=== PATIENT | female | born 1985 | race Caucasian/White ===

== ENCOUNTER 2018-12-21 05:34 | Day surgery (SDC) | payer OTHER ==
[~2018-12-21] VITALS: Ht 170.2 cm; Wt 81.6 kg
[2018-12-21] MEDS ORDERED: LACTATED RINGERS 1,000 ML IV SCH (06:30)
[2018-12-21] MEDS ORDERED: LIDOCAINE HCL 1% 20ML VIAL (Pyxis) INJ ONE (06:37)
[2018-12-21] MEDS ORDERED: FENTANYL CITRATE/PF 50MCG/ML 2ML VIAL ONE (06:37)
[2018-12-21] MEDS ORDERED: MIDAZOLAM HCL 2 MG/2 ML VIAL ONE (06:37)
[2018-12-21] MEDS ORDERED: PROPOFOL 200MG/20ML VIAL IV ONE (06:37)
[2018-12-21] MEDS ORDERED: SUCCINYLCHOLINE CHLORIDE 200MG/10ML IV ONE (06:39)
[2018-12-21] MEDS ORDERED: ROCURONIUM BROMIDE 10MG/ML VIAL 5ML IV ONE (06:40)
[2018-12-21] MEDS ORDERED: SODIUM CHLORIDE 0.9% 10ML VIAL ONE ×2 (06:41→07:32)
[2018-12-21] MEDS ORDERED: EPHEDRINE SULFATE 50MG/ML VIAL ONE ×2 (06:41→06:42)
[2018-12-21 06:44] LABS: UCG SCREEN NEGATIVE
[2018-12-21] MEDS ORDERED: BUPIVACAINE HCL 0.5% (5MG/ML) 50ML ONE (06:52)
[2018-12-21] MEDS ORDERED: SKIN ADHESIVE 0.7 GM EA TOP ONE (06:52)
[2018-12-21] MEDS ORDERED: CEFAZOLIN SODIUM 1000MG/VIAL ONE (07:32)
[2018-12-21] MEDS ORDERED: DEXAMETHASONE 4MG/ML 1ML VIAL ONE (07:42)
[2018-12-21] MEDS ORDERED: ONDANSETRON HCL 4MG/2ML INJ ONE (07:43)
[2018-12-21] MEDS ORDERED: NEOSTIGMINE METHYLSULFATE 1MG/ML 10 ML VIAL ONE (07:57)
[2018-12-21] MEDS ORDERED: GLYCOPYRROLATE 0.2 MG/ML 2ML VIAL ONE (07:57)
[2018-12-21] MEDS ORDERED: FLUMAZENIL 0.1 MG/ML 5ML VIAL IV ONE (08:24)
[2018-12-21] MEDS: HYDROMORPHONE HCL/PF 2MG/ML CPJ IV PRN ×2 (09:00→09:07)
[2018-12-21 09:07] VITALS: BP 118/78
== END 2018-12-21 11:00 | disposition home or self-care (01) ==
LOC: OR 05:34
PROVIDERS: ATTEND Surgery
DX: K80.64 Calculus of gallbladder and bile duct with chronic cholecystitis without obstruction (principal); Z98.891 History of uterine scar from previous surgery; Z79.899 Other long term (current) drug therapy
CPT/HCPCS: 47562; 81025; 88304; G0168; J0330; J0690; J1100; J1170; J2250; J2405; J2704; J2710; J3010; J3490; J7030; J7120